=== PATIENT | female | born 1965 | race Caucasian/White ===

== ENCOUNTER → 2016-11-13 | Outpatient (CLI) | payer BC ==
--- NOTE | 2016-11-13 17:21 | PCVCIMAG ---
APPROVED REPORT Exam: Stress Echocardiogram Indication: Hypertension. Family history CAD. Patient Location: Echo lab Stress Nurse: Yamilka Putnam RN Status: routine Ht: 5 ft 6 in HR: 77 bpm BP: 114/80 mmHg Rhythm: NSR Procedure The patient underwent an Exercise Stress Test using the Adarsh Protocol. Blood pressure, heart rate, and EKG were monitored. An Echocardiogram was performed by retail merchandiser technician in four stages in quad fashion. At peak stress, four selected images were obtained and placed side by side with resting images for comparison. Stress Test Details Stress Test: Exercise stress testing was performed using a Adarsh protocol. HR Resting HR: 77 bpmMax Heart Rate (APMHR): 168 bpm Max HR Achieved: 171 bpmTarget HR (85% APMHR): 142 bpm % of APMHR: 101 HR response to stress: Normal HR response to stress BP Resting BP: 114/80 mmHg Max BP: 210/80 mmHg ECG Resting ECG: Sinus Rhythm Clinical Reason for Termination: Maximal effort Exercise duration: 8 min 21 sec Highest Stage Achieved: Stage 3: 3.4 mph at 14% grade. Exercise capacity: 10.40 METs Overall Exercise Capacity for Age: Normal Stress ECG Conclusion 1. SUBJECTIVELY NEGATIVE FOR ISCHEMIA 2. ELECTROCARDIOGRAPHICALLY NEGATIVE FOR ISCHEMIA 3. SATISFACTORY FUNCTIONAL CAPACITY Pre-Stress Echo The resting Echocardiogram showed normal left ventricular contractility with an estimated Ejection Fraction of about >55%. Normal wall motion in all segments on baseline images. Post-Stress Echo The stress Echocardiogram showed normal left ventricular contractility with an estimated Ejection Fraction of about 60-65%. Normal augmentation of wall motion in all segments on post stress images. Conclusion Clinical Response: Non-ischemic Exercise Capacity: Average Stress ECG Response: Non-ischemic Stress Echo Images: Non-ischemic 1. LOW RISK STUDY Other Information Study Quality: Adequate <Conclusion> 1. LOW RISK STUDY
== END | disposition home or self-care (01) ==
LOC: PCVCIMAG 14:05
PROVIDERS: ATTEND Internal Medicine
DX: I10 Essential (primary) hypertension (principal); E78.5 Hyperlipidemia, unspecified; Z82.49 Family history of ischemic heart disease and other diseases of the circulatory system
CPT/HCPCS: 93325; 93351